=== PATIENT | female | born 1990 | race Caucasian/White ===

== ENCOUNTER 2017-10-07 20:45 | Emergency (ER) | payer BC, OTHER ==
[2017-10-07 21:35] LABS: Urine Blood 2+ (NEG); Urine Glucose NEGATIVE (NEG); Urine Protein TRACE (NEG); Urine Specific Gravity 1.025 (1.005-1.030)
--- NOTE | 2017-10-07 22:07 | RAD REPORT ---
EXAM DESCRIPTION: US - Transvaginal OB - 10/07/2017 10:00 pm CLINICAL HISTORY: VAGINAL BLEEDING COMPARISON: None FINDINGS: A single gestational sac is seen within the uterus. The shape of the sac is within normal limits. Within the sac is an abnormally large yolk sac measuring 7 mm. A single embryo is present wit h a crown-rump length of 2.4 cm, corresponding to 9 weeks 0 days gestation. Despite prolonged sonogra phic assessment, no cardiac activity was seen. A large inferiorly located subchorionic bleed is prese nt measuring 3 x 2 cm. The maternal adnexa and ovaries are within normal limits. IMPRESSION: The findings are compatible with first trimester demise.
[2017-10-07 22:23] LABS: Absolute Lymphocytes (CBC) 1.8 K/uL (0.7-4.9); Absolute Monocytes 0.5 K/uL (0.1-1.3); Absolute Neutrophil 4.6 K/uL (1.8-8.0); Basophils % 0.4 % (0-1.3); Eosinophils % 1.7 % (0-4.4); Hematocrit 39.3 % (36.0-45.0); Lymphocytes % 25.8 % (15.3-44.8); MCH 30.1 pg (27.0-35.0); MCV 86.4 fL (80-100); MPV 8.5 fL (7.6-11.3); Monocytes % 7.4 % (3.3-12.3); RBC Red Blood Cell Count 4.54 M/uL (3.86-4.86)
--- NOTE | 2017-10-07 23:17 | EDPHYS ---
Physician Documentation [facility] Name: Aleksandra Trinidad Age: 27 yrs Sex: Female : 1990 Arrival Date: 10/07/2017 Time: 20:49 Bed 24 Private MD: ED Physician James Arizmendi HPI: 10/07 21:13 This 27 yrs old Female presents to ER via Ambulatory with complaints of cp Vaginal Bleeding, 9 WEEKS PREG. 21:13 The patient presents with lower abdomen pain, nausea and vomiting. cp 21:13 Onset: The symptoms/episode began/occurred 3 day(s) ago. cp 21:13 Associated signs and symptoms: Pertinent positives: vaginal bleeding, Pertinent cp negatives: constipation, diarrhea, dysuria, fever, urinary frequency, abdominal pain. The patient's method of control includes nothing. 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 - Social history:: Smoking status: Patient/guardian denies using tobacco. - Ebola Screening: : No symptoms or risks identified at this time. ROS: 21:20 Constitutional: Negative for body aches, chills, fever, poor PO intake. cp 21:20 Eyes: Negative for injury, pain, redness, and discharge. cp 21:20 ENT: Negative for drainage from ear(s), ear pain, sore throat, difficulty swallowing, difficulty handling secretions. 21:20 Cardiovascular: Negative for chest pain, edema, palpitations. 21:20 Respiratory: Negative for cough, shortness of breath, wheezing. 21:20 Abdomen/GI: Negative for abdominal pain, nausea, vomiting, and diarrhea, black/tarry stool, rectal bleeding. 21:20 Back: Negative for pain at rest, pain with movement, radiated pain. 21:20 : Positive for vaginal bleeding, Negative for urinary symptoms, flank pain. 21:20 Skin: Negative for cellulitis, rash. 21:20 Neuro: Negative for altered mental status, dizziness, syncope, near syncope, weakness. 21:20 All other systems are negative. Exam: 21:25 Constitutional: The patient appears in no acute distress, alert, awake, non-toxic, well cp developed, well nourished. 21:25 Head/Face: Normocephalic, atraumatic. cp 21:25 Eyes: Periorbital structures: appear normal, Conjunctiva: normal, no exudate, no injection, Lids and lashes: appear normal, bilaterally. 21:25 ENT: External ear(s): are unremarkable, Nose: is normal, Mouth: Lips: moist, Oral mucosa: moist, Posterior pharynx: is normal, airway is patent, no erythema, no exudate. 21:25 Neck: ROM/movement: is normal, is supple, without pain, no range of motions limitations, no nuchal rigidity. 21:25 Chest/axilla: Inspection: normal. 21:25 Cardiovascular: Rate: normal, Rhythm: regular. 21:25 Respiratory: the patient does not display signs of respiratory distress, Respirations: normal, no use of accessory muscles, no retractions, no splinting, no tachypnea, labored breathing, is not present, Breath sounds: are clear throughout, no decreased breath sounds, no stridor, no wheezing. 21:25 Abdomen/GI: Inspection: abdomen appears normal, Bowel sounds: active, all quadrants, Palpation: abdomen is soft and non-tender, in all quadrants, rebound tenderness, is not appreciated, voluntary guarding, is not appreciated, involuntary guarding, is not appreciated. 21:25 Back: pain, is absent, ROM is normal. 21:25 Skin: cellulitis, is not appreciated, no rash present. Vital Signs: 20:59 BP 119 / 75; Pulse 92; Resp 18; Temp 98.4(O); Pulse Ox 99% on R/A; Weight 86.18 kg; tl2 Height 5 ft. 3 in. (160.02 cm); Pain 0/10; 21:00 BP 119 / 75; Pulse 94; Resp 18; Pulse Ox 100% ; tl3 22:59 BP 122 / 76; Pulse 82; Resp 18; Pulse Ox 99% ; tl3 23:20 BP 120 / 74; Pulse 84; Resp 18; Pulse Ox 100% ; tl3 20:59 Body Mass Index 33.66 (86.18 kg, 160.02 cm) tl2 MDM: 20:53 Patient medically screened. cp 22:00 Differential diagnosis: cervicitis, ectopic , threatened Ab, inevitable Ab, cp molar preganancy, ruptured ectopic , urinary tract infection, vaginosis. 23:15 Data reviewed: vital signs, nurses notes, lab test result(s), radiologic studies, cp ultrasound. 23:15 Counseling: I had a detailed discussion with the patient and/or guardian regarding: the cp historical points, exam findings, and any diagnostic results supporting the discharge/admit diagnosis, lab results, radiology results, the need for outpatient follow up, an OB/Gyne specialist, to return to the emergency department if symptoms worsen or persist or if there are any questions or concerns that arise at home. ED course: VSS. Discussed results of labs and US that showed concern for demise. Patient with no complaints of pain and continues to reports spot bleeding. Will discharge to home for f/u with primary OB for reevaluation. 10/07 21:11 Order name: Quantitative Hcg; Complete Time: 23:11 10/07 23:11 Interpretation: Abnormal: HCGQ 51531. 10/07 21:11 Order name: Abo/rh Typing; Complete Time: 23:11 10/07 23:12 Interpretation: Reviewed. 10/07 21:11 Order name: Basic Metabolic Panel; Complete Time: 23:11 10/07 21:11 Order name: CBC with Diff; Complete Time: 22:49 10/07 21:19 Order name: Urine Dipstick--Ancillary (enter results) jw5 10/07 21:19 Order name: Urine Dipstick-Ancillary; Complete Time: 22:23 EDMS 10/07 21:11 Order name: Urine Test (obtain specimen); Complete Time: 23:01 10/07 21:11 Order name: IV Saline Lock; Complete Time: 21:42 10/07 21:11 Order name: Labs collected and sent; Complete Time: 21:42 10/07 21:11 Order name: NPO; Complete Time: 21:35 10/07 21:11 Order name: Urine Dipstick-Ancillary (obtain specimen); Complete Time: 23:01 cp 10/07 21:11 Order name: Transvaginal OB US; Complete Time: 22:23 cp 10/07 21:19 Order name: Urine --Ancillary (enter results); Complete Time: 22:23 jw5 Administered Medications: No medications were administered Disposition: 10/07/17 23:17 Discharged to Home. Impression: Inevitable Spontaneous . - Condition is Stable. - Discharge Instructions: Incomplete Miscarriage. - Medication Reconciliation Form, Thank You Letter, Antibiotic Education, Prescription Opioid Use form. - Follow up: Private Physician; When: Tomorrow; Reason: Recheck today's complaints. - Problem is new. - Symptoms are unchanged. Addendum: 10/12/2017 20:22 Co-signature as Attending Physician, James Arizmendi MD I agree with the assessment and w a plan of care. Signatures: Dispatcher [employer] EDMS Edgardo Trejo PA PA cp Knox, Taylor, RN RN tl2 James Arizmendi MD MD mo Nanette Marshall, NOE RN tl3 Corrections: (The following items were deleted from the chart) 10/07 23:31 23:17 10/07/2017 23:17 Discharged to Home. Impression: Inevitable Spontaneous . tl3 Condition is Stable. Forms are Medication Reconciliation Form, Thank You Letter, Antibiotic Education, Prescription Opioid Use. Follow up: Private Physician; When: Tomorrow; Reason: Recheck today's complaints. Problem is new. Symptoms are unchanged. cp
--- NOTE | 2017-10-07 23:17 | ER ---
Nurse's Notes [facility] Name: Aleksandra Trinidad Age: 27 yrs Sex: Female : 1990 Arrival Date: 10/07/2017 Time: 20:49 Bed 24 Private MD: Diagnosis: Inevitable Spontaneous Presentation: 10/07 20:58 Presenting complaint: Patient states: I'm 9 weeks and for the past 3 days I've tl2 been having some spotting and brown vaginal discharge. I've had two miscarriages so I'm worried. Denies pain or bright red vaginal bleeding. Transition of care: patient was not received from another setting of care. Onset of symptoms was October 04, 2017. Risk Assessment: Do you want to hurt yourself or someone else? Patient reports no desire to harm self or others. Initial Sepsis Screen: Does the patient meet any 2 criteria? No. Patient's initial sepsis screen is negative. Does the patient have a suspected source of infection? No. Patient's initial sepsis screen is negative. Care prior to arrival: None. 20:58 Method Of Arrival: Ambulatory tl2 20:58 Acuity: JOSE 3 tl2 Triage Assessment: 20:59 General: Appears in no apparent distress. comfortable, Behavior is calm, cooperative, tl2 appropriate for age. Pain: Denies pain. : Reports vaginal bleeding that is brown, light flow, spotty. 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 - Social history:: Smoking status: Patient/guardian denies using tobacco. - Ebola Screening: : No symptoms or risks identified at this time. Screenin:00 Abuse screen: Denies threats or abuse. Nutritional screening: No deficits noted. tl2 Tuberculosis screening: No symptoms or risk factors identified. Fall Risk None identified. Assessment: 21:00 General: Appears in no apparent distress. comfortable, well groomed, well developed, tl3 well nourished, Behavior is calm, cooperative, appropriate for age. Pain: Denies pain. Neuro: Level of Consciousness is awake, alert, obeys commands, Oriented to person, place, time, situation, Appropriate for age. Cardiovascular: Heart tones S1 S2 present Patient's skin is warm and dry. Respiratory: Airway is patent Respiratory effort is even, unlabored, Respiratory pattern is regular, symmetrical, Breath sounds are clear bilaterally. GI: No signs and/or symptoms were reported involving the gastrointestinal system. : Reports vaginal bleeding that is brown, light flow. EENT: No signs and/or symptoms were reported regarding the EENT system. Derm: No signs and/or symptoms reported regarding the dermatologic system. Musculoskeletal: No signs and/or symptoms reported regarding the musculoskeletal system. 22:59 Reassessment: Patient appears in no apparent distress at this time. No changes from tl3 previously documented assessment. Patient and/or family updated on plan of care and expected duration. Pain level reassessed. Patient is alert, oriented x 3, equal unlabored respirations, skin warm/dry/pink. 23:20 Reassessment: Patient appears in no apparent distress at this time. No changes from tl3 previously documented assessment. Patient and/or family updated on plan of care and expected duration. Pain level reassessed. Patient is alert, oriented x 3, equal unlabored respirations, skin warm/dry/pink. Edgardo at beside discussing POC with pt. Vital Signs: 20:59 BP 119 / 75; Pulse 92; Resp 18; Temp 98.4(O); Pulse Ox 99% on R/A; Weight 86.18 kg; tl2 Height 5 ft. 3 in. (160.02 cm); Pain 0/10; 21:00 BP 119 / 75; Pulse 94; Resp 18; Pulse Ox 100% ; tl3 22:59 BP 122 / 76; Pulse 82; Resp 18; Pulse Ox 99% ; tl3 23:20 BP 120 / 74; Pulse 84; Resp 18; Pulse Ox 100% ; tl3 20:59 Body Mass Index 33.66 (86.18 kg, 160.02 cm) tl2 ED Course: 20:49 Patient arrived in ED. al2 20:53 Edgardo Trejo PA is PHCP. cp 20:53 James Arizmendi MD is Attending Physician. cp 20:59 Triage completed. tl2 20:59 Arm band placed on right wrist. tl2 21:00 Patient has correct armband on for positive identification. Placed in gown. Bed in low tl2 position. Call light in reach. Side rails up X 1. 21:00 No provider procedures requiring assistance completed. tl3 21:14 Nanette Marshall, RN is Primary Nurse. tl3 21:41 Inserted saline lock: 20 gauge in left antecubital area, using aseptic technique. Blood mt collected. 21:41 Missed attempt(s): 20 gauge in right in left forearm. Bleeding controlled, band aid tl3 applied, catheter tip intact. 22:01 Transvaginal OB US In Process Unspecified. EDMS 22:01 US Transvaginal Ob In Process Unspecified. EDMS 23:00 Urine Dipstick--Ancillary (enter results) Sent. tl3 23:20 IV discontinued, intact, bleeding controlled, No redness/swelling at site. Pressure tl3 dressing applied. Administered Medications: No medications were administered Outcome: 23:17 Discharge ordered by . cp 23:20 Discharged to home ambulatory. tl3 23:20 Condition: stable 23:20 Discharge instructions given to patient, Instructed on discharge instructions, follow up and referral plans. Demonstrated understanding of instructions, follow-up care. 23:31 Patient left the ED. tl3 Signatures: Dispatcher [employer] EDKS Edgardo Trejo PA PA cp Allegra Sullivan RN RN tl2 Bridgette Granado mt, Angelica al2 Lowrey, Tammy, NOE RN tl3
== END 2017-10-07 23:31 | disposition home or self-care (01) ==
LOC: ER 20:45
DX: O03.9 Complete or unspecified spontaneous abortion without complication (principal)
CPT/HCPCS: 36415; 76817; 80048; 81003; 81025; 84702; 85025; 86900; 86901; 99284